=== PATIENT | male | born 1945 | race Caucasian/White ===

== ENCOUNTER 2016-12-08 20:52 | Observation (INO) | payer MEDICARE, OTHER ==
[~2016-12-08] VITALS: Ht 188 cm; Wt 99.0 kg
[2016-12-08 21:00] VITALS: BP 132/72; PULSE 72; RESP 18; TEMP 98.6; O2SAT 98
[2016-12-08] MEDS ORDERED: WARF4TAB52 PO (21:15)
[2016-12-08] MEDS ORDERED: TAMS0.4C4 PO (21:15)
[2016-12-08] MEDS ORDERED: LOSA100T PO (21:15)
[2016-12-08] MEDS ORDERED: WARF-60 PO (21:15)
[2016-12-08] MEDS ORDERED: SOTA80TA PO (21:15)
[2016-12-08] MEDS ORDERED: AMLO5TAB2 PO (21:15)
[2016-12-08] MEDS ORDERED: ASPI81CH CHEW (21:15)
[2016-12-08] MEDS ORDERED: LEVO.15 PO (21:15)
[2016-12-08] MEDS ORDERED: SODIUM CHLORIDE 0.9% FLUSH 5 ML FLUSH IVF PRN (21:30)
--- NOTE | 2016-12-08 21:37 | PD ---
HPI . Syncope Chief Complaint: Syncope/Near-Syncope Time Seen by Provider: 21:17 Travel History International Travel<30 days: No Contact w/Intl Traveler<30days: No Traveled to known affect area: No History of Present Illness HPI Patient presents following a syncopal event 3. History is obtained from the patient and his adult son. They were at the race. They report that they have ambulated lot today and had not eaten anything. The patient was standing when he passed out. He was caught by his son so there was no injury. The son states that the patient passed out again almost immediately after regaining consciousness. He then passed out a third time. The son reports that the patient was pale and diaphoretic with the third episode of syncope. Patient denies any prodrome. He denies any chest pain or shortness of breath. He denies headache. He reports a positive previous similar history in the remote past. He states that that episode was attributed to a new medication. PFSH Past Medical History Atrial Fibrillation: Yes Diminished Hearing: No GERD: Yes Hypertension: Yes Medical other: Yes (BPH, ) Thyroid Disease: Yes (hypothyroid) Tetanus Vaccination: < 5 Years Influenza Vaccination: No Past Surgical History Other Surgery: Yes (spenectomy, hernia repairs groin, colonscopy with repair after) Social History Alcohol Use: No Tobacco Use: No Substance Use: No Allergies-Medications (Allergen,Severity, Reaction): Coded Allergies: Altace (Verified Allergy, Unknown, 12/08/16) Sulfa (Verified Allergy, Unknown, Rash, 12/08/16) Reported Meds & Prescriptions Reported Meds & Active Scripts Active Reported Warfarin 1 Mg Tab 1 Mg PO DAILY Warfarin 6 Mg Tab 6 Mg PO DAILY Amlodipine (Amlodipine Besylate) 5 Mg Tab 5 Mg PO DAILY Tamsulosin (Tamsulosin HCl) 0.4 Mg Cap 0.4 Mg PO HS Synthroid (Levothyroxine Sodium) 150 Mcg Tab 150 Mcg PO DAILY Sotalol (Sotalol HCl) 80 Mg Tab 80 Mg PO DAILY Losartan (Losartan Potassium) 100 Mg Tab 100 Mg PO DAILY Aspirin 81 Mg Chew 81 Mg CHEW DAILY Review of Systems Except as stated in HPI: all other systems reviewed are Neg General / Constitutional: No: Fever, Chills Eyes: No: Blurred Vision HENT: No: Headaches Cardiovascular: Positive: Syncope, No: Chest Pain or Discomfort, Palpitations , Dyspnea on exertion Respiratory: No: Shortness of Breath Gastrointestinal: No: Nausea, Vomiting, Diarrhea, Abdominal Pain Musculoskeletal: Positive: Other (no injury) Neurologic: Positive: Change in Mentation, No: Dizziness, Headache, Slurred Speech, Paresthesia Physical Exam Narrative GENERAL: Patient is now awake and alert and fully oriented. SKIN: Warm and dry. HEAD: Atraumatic. Normocephalic. EYES: Pupils equal and round. Extraocular movements are intact. ENT: No nasal bleeding or discharge. Mucous membranes pink and moist. NECK: Trachea midline. Neck is supple and nontender. CARDIOVASCULAR: Regular rate and rhythm. Heart sounds are normal. RESPIRATORY: No accessory muscle use. Lungs are clear with full air movement throughout. GASTROINTESTINAL: Abdomen soft, non-tender, nondistended. There is no pulsatile abdominal mass. MUSCULOSKELETAL: No obvious deformities. No edema. NEUROLOGICAL: Awake and alert. No obvious cranial nerve deficits. Motor grossly within normal limits. Normal speech. PSYCHIATRIC: Appropriate mood and affect; insight and judgment normal. Data Data Last Documented VS Vital Signs Date Time Temp Pulse Resp B/P Pulse Ox O2 Delivery O2 Flow Rate FiO2 12/08/16 21:05 Room Air 12/08/16 21:00 98.6 72 18 132/72 98 Orders Electrocardiogram (12/08/16 21:18) Complete Blood Count With Diff (12/08/16 21:18) Comprehensive Metabolic Panel (12/08/16 21:18) Magnesium (Mg) (12/08/16 21:18) Ckmb (Isoenzyme) Profile (12/08/16 21:18) Troponin I (12/08/16 21:18) Act Partial Throm Time (Ptt) (12/08/16 21:18) Prothrombin Time / Inr (Pt) (12/08/16 21:18) Chest, Single Ap (12/08/16 21:18) Ecg Monitoring (12/08/16 21:18) Iv Access Insert/Monitor (12/08/16 21:18) Oximetry (12/08/16 21:18) Sodium Chloride 0.9% Flush (Ns Flush) (12/08/16 21:30) CKMB (12/08/16 21:30) CKMB% (12/08/16 21:30) Warfarin (Coumadin) (12/08/16 22:45) Admit Order (Ed Use Only) (12/08/16 22:53) Echo 2d Comp W/Dopp(Routine) (12/08/16 ) Place In Observation (12/08/16 ) Vital Signs (Adult) Q4H (12/08/16 22:52) Activity Oob With Assistance (12/08/16 22:52) 911 Operator / Telemetry .CONTINUOUS (12/08/16 22:52) Intake + Output CAS.QSHIFT (12/08/16 22:52) Diet Regular Basic (12/09/16 Breakfast) Sodium Chlor 0.9% 1000 Ml Inj (Ns 1000 M (12/08/16 22:52) Sodium Chloride 0.9% Flush (Ns Flush) (12/08/16 23:00) Sodium Chloride 0.9% Flush (Ns Flush) (12/09/16 09:00) Ondansetron Inj (Zofran Inj) (12/08/16 23:00) Bisacodyl Supp (Dulcolax Supp) (12/08/16 23:00) Comprehensive Metabolic Panel (12/09/16 09:00) Complete Blood Count With Diff (12/09/16 09:00) Troponin I (12/09/16 03:00) Troponin I (12/09/16 09:00) Scd Bilateral/Knee High CAS.BID (12/08/16 22:52) Emanuel Bilateral/Knee High CAS.QSHIFT (12/08/16 22:52) Acetaminophen (Tylenol) (12/08/16 23:00) Acetamin-Hydrocod 325-5 Mg ([place] 5-325 (12/08/16 23:00) Acetamin-Hydrocod 325-10 Mg ([place] 10-32 (12/08/16 23:00) Amlodipine (Norvasc) (12/09/16 09:00) Aspirin Chew (Aspirin Chew) (12/09/16 09:00) Levothyroxine (Synthroid) (12/09/16 09:00) Losartan (Cozaar) (12/09/16 09:00) Sotalol (Betapace) (12/09/16 09:00) Tamsulosin (Flomax) (12/09/16 21:00) Prothrombin Time / Inr (Pt) (12/09/16 06:00) Sotalol (Betapace) (12/08/16 23:00) Labs Laboratory Tests Test 12/08/16 21:30 White Blood Count 8.6 TH/MM3 Red Blood Count 4.48 MIL/MM3 Hemoglobin 14.1 GM/DL Hematocrit 41.5 % Mean Corpuscular Volume 92.6 FL Mean Corpuscular Hemoglobin 31.4 PG Mean Corpuscular Hemoglobin 34.0 % Concent Red Cell Distribution Width 13.3 % Platelet Count 188 TH/MM3 Mean Platelet Volume 9.3 FL Neutrophils (%) (Auto) 65.2 % Lymphocytes (%) (Auto) 20.5 % Monocytes (%) (Auto) 12.0 % Eosinophils (%) (Auto) 1.7 % Basophils (%) (Auto) 0.6 % Neutrophils # (Auto) 5.6 TH/MM3 Lymphocytes # (Auto) 1.8 TH/MM3 Monocytes # (Auto) 1.0 TH/MM3 Eosinophils # (Auto) 0.1 TH/MM3 Basophils # (Auto) 0.1 TH/MM3 CBC Comment DIFF FINAL Differential Comment Prothrombin Time 19.9 SEC Prothromb Time International 1.8 RATIO Ratio Activated Partial 32.9 SEC Thromboplast Time Sodium Level 137 MEQ/L Potassium Level 4.1 MEQ/L Chloride Level 104 MEQ/L Carbon Dioxide Level 26.8 MEQ/L Anion Gap 6 MEQ/L Blood Urea Nitrogen 20 MG/DL Creatinine 0.87 MG/DL Estimat Glomerular Filtration 86 ML/MIN Rate Random Glucose 105 MG/DL Calcium Level 8.3 MG/DL Magnesium Level 2.2 MG/DL Total Bilirubin 0.7 MG/DL Aspartate Amino Transf 21 U/L (AST/SGOT) Alanine Aminotransferase 26 U/L (ALT/SGPT) Alkaline Phosphatase 83 U/L Total Creatine Kinase 152 U/L Creatine Kinase MB 1.2 NG/ML Troponin I LESS THAN 0.02 NG/ML Total Protein 7.0 GM/DL Albumin 3.5 GM/DL MDM Medical Decision Making Medical Screen Exam Complete: Yes Emergency Medical Condition: Yes Medical Record Reviewed: Yes (the patient has never before.) Interpretation(s) EKG shows a sinus rhythm with a right bundle branch block. Differential Diagnosis My differential diagnosis of syncope includes but is not limited to cardiac arrhythmia, hypovolemia, anemia, neurological catastrophe, vasovagal response Narrative Course Patient presents for evaluation of syncope 3. CBC & BMP Diagram 12/08/16 21:30 Cardiac enzymes are negative. INR is 1.8. Diagnosis Primary Impression: Syncope Qualified Code: R55 - Syncope, unspecified syncope type Admitting Information Admitting Physician Requests: Observation Condition: Stable Jodi Pérez MD Dec 08, 2016 21:37
--- NOTE | 2016-12-08 21:49 | RADRPT ---
EXAM DATE/TIME: 12/08/2016 21:34 [facility] COMPARISON: No previous studies available for comparison. INDICATIONS : Syncope. MEDICAL HISTORY : Hypertension. Hypothyroidism. SURGICAL HISTORY : None. ENCOUNTER: Initial ACUITY: 1 day PAIN SCORE: 0/10 LOCATION: chest FINDINGS: A single view of the chest demonstrates the lungs to be symmetrically aerated without evidence of mas s, infiltrate The cardiomediastinal contours reveal atherosclerotic changes of the aorta.. Osseous structures are intact. Indistinct left costophrenic angle is appreciated with horizontal position of the left hemidiaphragm. This is of indeterminate chronicity. CONCLUSION: Left basilar changes horizontal diaphragm blunted left costophrenic angle indetermin ate chronicity. Atherosclerotic changes of the aorta. Saman Gaines MD on December 08, 2016 at 21:46 Board Certified Radiologist. This report was verified electronically.
[2016-12-08 21:58] LABS: AUTOMATED NEUTROPHIL # 5.6 TH/MM3 (1.8-7.7); BASOPHIL # 0.1 TH/MM3 (0-0.2); BASOPHIL % 0.6 % (0.0-2.0); EOSINOPHIL # 0.1 TH/MM3 (0-0.4); EOSINOPHIL % 1.7 % (0.0-4.0); HEMATOCRIT 41.5 % (39.0-51.0); HEMO FLAGS DIFF FINAL; LYMPH % 20.5 % (9.0-44.0); LYMPHOCYTE # 1.8 TH/MM3 (1.0-4.8); MEAN CELL VOLUME 92.6 FL (80.0-100.0); MEAN CORPUSCULAR HEMOGLOBIN 31.4 PG (27.0-34.0); NEUT % 65.2 % (16.0-70.0); PLATELET COUNT 188 TH/MM3 (150-450); RED BLOOD COUNT 4.48 MIL/MM3 (4.50-5.90); RED CELL DISTRIBUTION WIDTH 13.3 % (11.6-17.2); WHITE BLOOD COUNT 8.6 TH/MM3 (4.0-11.0)
[2016-12-08 22:00] VITALS: BP 129/99; PULSE 68; RESP 16; O2SAT 95
[2016-12-08 22:10] LABS: APTT (PATIENT) 32.9 SEC (24.3-30.1); INTERNATIONAL NORMALIZED RATIO 1.8 RATIO; PROTHROMBIN TIME - PATIENT 19.9 SEC (9.8-11.6)
[2016-12-08 22:15] LABS: ANION GAP 6 MEQ/L (5-15); AST (GOT) 21 U/L (15-37); BICARBONATE 26.8 MEQ/L (21.0-32.0); BLOOD UREA NITROGEN 20 MG/DL (7-18); CHLORIDE 104 MEQ/L (98-107); GLOMERULAR FILTRATION RATE 86 ML/MIN (>89); MAGNESIUM 2.2 MG/DL (1.5-2.5); POTASSIUM 4.1 MEQ/L (3.5-5.1); SODIUM (NA) 137 MEQ/L (136-145)
[2016-12-08 22:19] LABS: ALKALINE PHOSPHATASE 83 U/L (45-117); ALT (GPT) 26 U/L (12-78); CREATINE KINASE 152 U/L (39-308); TOTAL BILIRUBIN ADULT 0.7 MG/DL (0.2-1.0)
[2016-12-08 22:32] LABS: CKMB 1.2 NG/ML (0.5-3.6)
[2016-12-08] MEDS ORDERED: WARFARIN SOD 1 MG TAB PO ONE (22:45)
--- NOTE | 2016-12-08 22:53 | HHI.HP ---
[facility] Diagnosis Diagnoses: (1) Syncope Diagnosis: Principal (2) A-fib Diagnosis: Principal (3) HTN (hypertension) Diagnosis: Principal Travel History International Travel<30 Days: No Contact w/Intl Traveler <30 Da: No Traveled to Known Affected Are: No History of Present Illness This is a 71-year-old male with a PMH of HTN, Hypothyroidism, A. fib on Coumadin and BPH who was brought to the ER after a syncopal episode while at the races. Son states pt had acute syncopal episode while standing, no head trauma as Son caught him and lowered him to ground. Had 2 syncopal episodes immediately following. No incontinence, no seizure activity noted. Pt denies chest pain, SOB, lightheadedness or dizziness prior to syncopal events. On arrival, BP 132/72, HR 72, O2 sat 98% on RA, Afebrile. CBC unremarkable. Chemistry essentially unremarkable except for GFR 86. INR 1.8. Troponin negative. EKG with no acute changes. CXR with left basilar changes indeterminate chronicity, no acute findings. Review of Systems Except as stated in HPI: all other systems reviewed are Neg ROS: 14 point review of systems otherwise negative. Past Family Social History Past Medical History PMH: HTN, Hypothyroidism, A. fib on Coumadin and BPH Past Surgical History PAST SURGICAL HISTORY: Splenectomy, Hernia Repair Allergies: Coded Allergies: Altace (Verified Allergy, Unknown, 12/08/16) Sulfa (Verified Allergy, Unknown, Rash, 12/08/16) Family History PAST FAMILY HISTORY: Reviewed. No h/o DM or CAD Social History PAST SOCIAL HISTORY: Negative for alcohol, tobacco or drugs. Physical Exam Vital Signs Vital Signs Date Time Temp Pulse Resp B/P Pulse Ox O2 Delivery O2 Flow Rate FiO2 12/08/16 21:05 Room Air 12/08/16 21:00 98.6 72 18 132/72 98 Physical Exam PE: GENERAL: Pleasant elderly male in no acute distress. HEENT: PERRLA, EOMI. No scleral icterus or conjunctival pallor. No lid lag or facial droop. CARDIOVASCULAR: Regular rate and rhythm. No obvious murmurs to auscultation. No chest tenderness to palpation. RESPIRATORY: No obvious rhonchi or wheezing. Clear to auscultation. Breath sounds equal bilaterally. GASTROINTESTINAL: Abdomen soft, non-tender, nondistended. BS normal. MUSCULOSKELETAL: Extremities without clubbing, cyanosis, or edema. No obvious deformities. NEUROLOGICAL: Awake, alert and oriented x4. No focal neurologic deficits. Moving both upper and lower extremities spontaneously. Laboratory Laboratory Tests Test 12/08/16 21:30 White Blood Count 8.6 Red Blood Count 4.48 Hemoglobin 14.1 Hematocrit 41.5 Mean Corpuscular Volume 92.6 Mean Corpuscular Hemoglobin 31.4 Mean Corpuscular Hemoglobin 34.0 Concent Red Cell Distribution Width 13.3 Platelet Count 188 Mean Platelet Volume 9.3 Neutrophils (%) (Auto) 65.2 Lymphocytes (%) (Auto) 20.5 Monocytes (%) (Auto) 12.0 Eosinophils (%) (Auto) 1.7 Basophils (%) (Auto) 0.6 Neutrophils # (Auto) 5.6 Lymphocytes # (Auto) 1.8 Monocytes # (Auto) 1.0 Eosinophils # (Auto) 0.1 Basophils # (Auto) 0.1 CBC Comment DIFF FINAL Differential Comment Prothrombin Time 19.9 Prothromb Time International 1.8 Ratio Activated Partial 32.9 Thromboplast Time Sodium Level 137 Potassium Level 4.1 Chloride Level 104 Carbon Dioxide Level 26.8 Anion Gap 6 Blood Urea Nitrogen 20 Creatinine 0.87 Estimat Glomerular Filtration 86 Rate Random Glucose 105 Calcium Level 8.3 Magnesium Level 2.2 Total Bilirubin 0.7 Aspartate Amino Transf 21 (AST/SGOT) Alanine Aminotransferase 26 (ALT/SGPT) Alkaline Phosphatase 83 Total Creatine Kinase 152 Creatine Kinase MB 1.2 Troponin I LESS THAN 0.02 Total Protein 7.0 Albumin 3.5 Result Diagram: 12/08/16212912/08/162129 Assessment and Plan Problem List: (1) Syncope ICD Code: R55 Status: Acute (2) A-fib ICD Code: I48.91 Status: Acute (3) HTN (hypertension) ICD Code: I10 Status: Acute Assessment and Plan A/P: 1. Syncope: x3, Son reports decreased PO intake, no prodromal symptoms, no head trauma. CXR w/ no acute findings, images reviewed by me. Trop negative, EKG w/ no acute changes. Labs essentially unremarkable except for GFR 86, no previous labs for comparison. Admit for Observation, telemetry, check cardiac enzymes to eval for underlying ischemia, IVF for hydration, check Echo. 2. A-fib: Chronic. On Coumadin. INR 1.8. Resume home medications. Repeat INR in am. 3. HTN: Controlled. Resume home medications, monitor BP. 4. DVT Prophylaxis: On Coumadin 5. Social work for d/c planning as needed. 6. Case discussed w/ ER physician at length. Problem Qualifiers (1) Syncope: Qualified Code: R55 - Syncope, unspecified syncope type Марина Darby MD Dec 08, 2016 22:53
[2016-12-08] MEDS ORDERED: ACETAMINOPHEN/HYDROcodone 325 MG/10 MG TAB PO PRN (23:00)
[2016-12-08] MEDS ORDERED: SOTALOL HCL 80 MG TAB PO ONE (23:00)
[2016-12-08] MEDS: SODIUM CHLOR 0.9% 1000 ML INJ 1,000 ML IV SCH (23:00)
[2016-12-08] MEDS ORDERED: BISACODYL 10 MG SUPP PR PRN (23:00)
[2016-12-08] MEDS ORDERED: ACETAMINOPHEN 325 MG TAB PO PRN (23:00)
[2016-12-08] MEDS ORDERED: ONDANSETRON HCL 4 MG/2 ML VIAL IVP PRN (23:00)
[2016-12-08] MEDS ORDERED: ACETAMINOPHEN/HYDROcodone 325 MG/5 MG TAB PO PRN (23:00)
[2016-12-08] MEDS ORDERED: SODIUM CHLORIDE 0.9% FLUSH 5 ML FLUSH FLUSH PRN (23:00)
[2016-12-08 23:05] VITALS: BP 160/88; PULSE 79; RESP 18; O2SAT 95
[2016-12-09 00:30] VITALS: PULSE 62
[2016-12-09 00:54] VITALS: BP 136/85; PULSE 69; RESP 19; TEMP 98.2; O2SAT 97
[2016-12-09 04:33] LABS: INTERNATIONAL NORMALIZED RATIO 1.7 RATIO; PROTHROMBIN TIME - PATIENT 19.7 SEC (9.8-11.6)
[2016-12-09 04:52] VITALS: BP 132/80; PULSE 68; RESP 20; TEMP 98.3; O2SAT 97
[2016-12-09] MEDS ORDERED: LEVOTHYROXINE SODIUM 150 MCG TAB PO SCH (06:00)
[2016-12-09 07:29] VITALS: BP 127/73; PULSE 57; RESP 18; TEMP 97.7; O2SAT 94
[2016-12-09] MEDS ORDERED: SODIUM CHLORIDE 0.9% FLUSH 5 ML FLUSH FLUSH SCH (09:00)
[2016-12-09] MEDS ORDERED: ASPIRIN 81 MG CHEW TAB CHEW SCH (09:00)
[2016-12-09] MEDS ORDERED: LOSARTAN 50 MG TAB PO SCH (09:00)
[2016-12-09] MEDS ORDERED: SOTALOL HCL 80 MG TAB PO SCH (09:00)
[2016-12-09] MEDS ORDERED: amLODIPine BESYLATE 5 MG TAB PO SCH (09:00)
[2016-12-09] MEDS: SODIUM CHLOR 0.9% 1000 ML INJ 1,000 ML IV SCH (09:05)
--- NOTE | 2016-12-09 10:30 | HHI.PR ---
Subjective Remarks Follow-up for syncope. The patient is in town from [place], [place] for the races. He states he believes yesterday he "over did it" and wasn't drinking much water or eating regularly. He was walking around all day and the [place], and was standing for over an hour prior to passing out. He remembers turning to his son in saying that he can't stand anymore, and when he turned back around he states he must have passed out. His son caught him and lowered him to the ground. Today the patient feels completely back to normal and he wants to go home. He has ambulated around his room. Denies any lightheadedness, dizziness. He has a medical laboratory assistant in [place], Dr. Beto Acosta, [facility], . He believes he had an echocardiogram 2 years ago that was mostly normal, had 1 "leaky valve". Objective Vitals Vital Signs Date Time Temp Pulse Resp B/P Pulse Ox O2 Delivery O2 Flow Rate FiO2 12/09/16 07:29 97.7 57 18 127/73 94 12/09/16 04:52 98.3 68 20 132/80 97 12/09/16 00:54 98.2 69 19 136/85 97 12/09/16 00:30 62 12/08/16 23:05 79 18 160/88 95 Room Air 12/08/16 22:00 68 16 129/99 95 12/08/16 21:05 Room Air 12/08/16 21:00 98.6 72 18 132/72 98 I/O 12/08/16 12/08/16 12/08/16 12/09/16 12/09/16 12/09/16 07:00 15:00 23:00 07:00 15:00 23:00 Intake Total 662 ml Balance 662 ml Intake Oral 250 ml IV Total 412 ml # Voids 2 Result Diagram: 12/08/16212912/08/162129 Imaging Last Impressions Chest X-Ray 12/08/162117 Signed Impressions: Service Date/Time: November 21:34 - CONCLUSION: Left basilar changes horizontal diaphragm blunted left costophrenic angle indeterminate chronicity. Atherosclerotic changes of the aorta. Saman Gaines MD Objective Remarks GENERAL: Well-nourished, well-developed male patient in NAD. SKIN: Warm and dry. No rash. HEAD: Normocephalic. Atraumatic. EYES: Pupils equal and round. No scleral icterus. No injection or drainage. ENT: No nasal bleeding or discharge. Mucous membranes pink and moist. NECK: Supple. Trachea midline. CARDIOVASCULAR: Regular rate and rhythm. S1, S2 noted. No murmur appreciated. RESPIRATORY: No accessory muscle use. Clear to auscultation. Breath sounds equal bilaterally. GASTROINTESTINAL: Abdomen soft, non-tender, nondistended. Normoactive bowel sounds x4. MUSCULOSKELETAL: No obvious deformities. Extremities without clubbing, cyanosis , or edema. NEUROLOGICAL: Awake and alert. No obvious cranial nerve deficits. Motor grossly within normal limits. 5/5 muscle strength in bilateral upper and lower extremities. Normal speech. PSYCHIATRIC: Appropriate mood and affect; insight and judgment normal. Medications and IVs Current Medications Medications (Trade) Dose Ordered Sig/Kady Route Start Time Stop Time Status Last Admin (NS 1000 ml Inj) 1,000 ml @ 100 mls/hr Q10H IV 12/08/16 22:52 12/09/16 09:05 (NS Flush) 2 ml UNSCH PRN FLUSH 12/08/16 23:00 (NS Flush) 2 ml BID FLUSH 12/09/16 09:00 12/09/16 09:07 (Zofran Inj) 4 mg Q6H PRN IVP 12/08/16 23:00 (Dulcolax Supp) 10 mg DAILY PRN HI 12/08/16 23:00 (Tylenol) 650 mg Q6H PRN PO 12/08/16 23:00 ([place] 5-325 Mg) 1 tab Q4H PRN PO 12/08/16 23:00 ([place] 10-325 Mg) 1 tab Q4H PRN PO 12/08/16 23:00 (Norvasc) 5 mg DAILY PO 12/09/16 09:00 12/09/16 09:06 (Aspirin Chew) 81 mg DAILY CHEW 12/09/16 09:00 12/09/16 09:06 (Synthroid) 150 mcg DAILY@0600 PO 12/09/16 06:00 12/09/16 06:55 (Cozaar) 100 mg DAILY PO 12/09/16 09:00 12/09/16 09:07 (Betapace) 80 mg DAILY PO 12/09/16 09:00 12/09/16 09:06 (Flomax) 0.4 mg HS PO 12/09/16 21:00 A/P Problem List: (1) Syncope ICD Code: R55 Status: Acute (2) A-fib ICD Code: I48.91 Status: Acute (3) HTN (hypertension) ICD Code: I10 Status: Acute Assessment and Plan 71-year-old male with a PMH of HTN, Hypothyroidism, A. fib on Coumadin and BPH who was brought to the ER after a syncopal episode while at the [employer] Syncope: x3, Son reports decreased PO intake, no prodromal symptoms, no head trauma. CXR w/ no acute findings, images reviewed by me. Trop negative x2, EKG w/ RBBB but no acute ischemic changes. Labs essentially unremarkable except for GFR 86, no previous labs for comparison. Monitor on telemetry. Give IVF for hydration. Check Echo. Orthostatics negative. Try to obtain records from patient's medical laboratory assistant in [place], Dr. Beto Acosta, [facility], . -1400hrs: Records obtained from patient's medical laboratory assistant. Echo with EF 60-65%, aortic sclerosis without stenosis, no significant change from prior study 2009. EKG with RBBB. -1430hrs: Patient seen by Dr. Holt, patient currently having echo done, ok to discharge. A-fib: Chronic. Currently in NSR. On Coumadin. INR 1.8. Resume home medications. Monitor INR. HTN: Controlled. Resume home medications, monitor BP. DVT Prophylaxis: On Coumadin Discussed with Dr. Holt. Discharge Planning Discharge patient to home Condition on discharge: Improved Heart Healthy Diet as tolerated Ad Nadia activity Rx written: none Follow-up with primary care physician within 1 week Attending Statement The exam, history, and the medical decision-making described in the above note were completed with the assistance of the mid-level provider. I reviewed and agree with the findings presented. I attest that I had a [id number] encounter with the patient on the same day, and personally performed and documented my assessment and findings in the medical record. Problem Qualifiers (1) Syncope: Qualified Code: R55 - Syncope, unspecified syncope type Deja Reveles PA-C Dec 09, 2016 10:30 Abhilash Holt MD Dec 09, 2016 23:50
[2016-12-09 11:49] VITALS: BP_SYST 152; BP_SYST 156; BP_SYST 171; BP_DIAS 104; BP_DIAS 88; BP_DIAS 96; PULSE 54; RESP 20; TEMP 97.5; O2SAT 96
[2016-12-09 11:56] LABS: AUTOMATED NEUTROPHIL # 3.3 TH/MM3 (1.8-7.7); BASOPHIL % 0.6 % (0.0-2.0); EOSINOPHIL # 0.1 TH/MM3 (0-0.4); EOSINOPHIL % 0.8 % (0.0-4.0); HEMATOCRIT 41.8 % (39.0-51.0); HEMO FLAGS DIFF FINAL; LYMPH % 35.8 % (9.0-44.0); LYMPHOCYTE # 2.3 TH/MM3 (1.0-4.8); MEAN CELL VOLUME 93.4 FL (80.0-100.0); MEAN CORPUSCULAR HEMOGLOBIN 31.4 PG (27.0-34.0); MEAN CORPUSCULAR HGB CONC 33.6 % (32.0-36.0); MONO % 11.2 % (0.0-8.0); NEUT % 51.6 % (16.0-70.0); PLATELET COUNT 186 TH/MM3 (150-450); RED BLOOD COUNT 4.47 MIL/MM3 (4.50-5.90); RED CELL DISTRIBUTION WIDTH 13.5 % (11.6-17.2); WHITE BLOOD COUNT 6.5 TH/MM3 (4.0-11.0)
[2016-12-09 12:20] LABS: ALKALINE PHOSPHATASE 81 U/L (45-117); ALT (GPT) 24 U/L (12-78); ANION GAP 9 MEQ/L (5-15); AST (GOT) 18 U/L (15-37); BICARBONATE 27.1 MEQ/L (21.0-32.0); BLOOD UREA NITROGEN 14 MG/DL (7-18); CHLORIDE 106 MEQ/L (98-107); GLOMERULAR FILTRATION RATE 111 ML/MIN (>89); POTASSIUM 3.6 MEQ/L (3.5-5.1); SODIUM (NA) 142 MEQ/L (136-145); TOTAL BILIRUBIN ADULT 0.6 MG/DL (0.2-1.0)
--- NOTE | 2016-12-09 14:48 | HHI.DCPOC ---
Discharge Care Plan Diagnosis: (1) Syncope (2) A-fib (3) HTN (hypertension) Goals to Promote Your Health * To prevent worsening of your condition and complications * To maintain your health at the optimal level Directions to Meet Your Goals Take your medications as prescribed Follow your dietary instruction Follow activity as directed Keep your appointments as scheduled Take your immunizations and boosters as scheduled If your symptoms worsen call your PCP, if no PCP go to Urgent Care Center or Emergency Room Smoking is Dangerous to Your Health. Avoid second hand smoke Call the 24-hour hour crisis hotline for domestic abuse at Deja Reveles PA-C Dec 09, 2016 2:48 pm
--- NOTE | 2016-12-09 17:22 | EKG ---
Date Performed: 12/08/2016 Time Performed: 21:34:01 PTAGE: 71 years EKG: Sinus rhythm MARKED LEFT AXIS DEVIATION RIGHT BUNDLE BRANCH BLOCK ABNORMAL ECG NO PREVIOUS TRACING DOCTOR: Gayle Valdez Interpretating Date/Time 12/09/2016 17:16:47
--- NOTE | 2016-12-09 19:02 | EC ---
Study Study Date:12/09/2016 STUDY CONCLUSIONS SUMMARY - Left ventricle: The cavity size was normal. Wall thickness was normal. Systolic function was mildly reduced. The estimated ejection fraction was in the range of 45% to 50%. Wall motion was normal; there were no regional wall motion abnormalities. - Aortic valve: Mild regurgitation. - Left atrium: The atrium was mildly dilated. If LV function is below 40, please consider prescribing an ACEI or ARB or document rationale for non-use. PROCEDURE DATA STUDY STATUS: Elective. Procedure: Transthoracic echocardiography. Image quality was good. Scanning was performed from the parasternal, apical, and subcostal acoustic windows. Study completion: The patient tolerated the procedure well. Transthoracic echocardiography. M-mode, complete 2D, complete spectral Doppler, and color Doppler. Patient status: Inpatient. CARDIAC ANATOMY LEFT VENTRICLE: The cavity size was normal. Wall thickness was normal. Systolic function was mildly reduced. The estimated ejection fraction was in the range of 45% to 50%. Wall motion was normal; there were no regional wall motion abnormalities. AORTIC VALVE: Trileaflet; mildly thickened, mildly calcified leaflets. Doppler: Transvalvular velocity was within the normal range. There was no stenosis. Mild regurgitation. AORTA: Aortic root: The aortic root was normal in size. MITRAL VALVE: Structurally normal valve. Doppler: Transvalvular velocity was within the normal range. There was no evidence for stenosis. No regurgitation. LEFT ATRIUM: The atrium was mildly dilated. RIGHT VENTRICLE: The cavity size was normal. Wall thickness was normal. PULMONIC VALVE: Doppler: Transvalvular velocity was within the normal range. There was no evidence for stenosis. No regurgitation. TRICUSPID VALVE: Structurally normal valve. Doppler: Transvalvular velocity was within the normal range. No regurgitation. PULMONARY ARTERY: The main pulmonary artery was normal-sized. Systolic pressure was within the normal range. RIGHT ATRIUM: The atrium was normal in size. PERICARDIUM: There was no pericardial effusion. SYSTEMIC VEINS: Inferior vena cava: The vessel was normal in size. Prepared and signed by Migel Liang [id number]
[2016-12-09] MEDS ORDERED: TAMSULOSIN HCL 0.4 MG CAP PO SCH (21:00)
== END 2016-12-09 15:26 | disposition home or self-care (01) ==
LOC: NEPA 20:52 → NEDA 22:55 → NEPHCDU 12-09 00:33
PROVIDERS: ADMIT Internal Medicine; ATTEND Internal Medicine
DX: I70.0 Atherosclerosis of aorta (principal); R55 Syncope and collapse; I10 Essential (primary) hypertension; I48.2 Chronic atrial fibrillation; I45.10 Unspecified right bundle-branch block; N40.0 Benign prostatic hyperplasia without lower urinary tract symptoms; K21.9 Gastro-esophageal reflux disease without esophagitis; R61 Generalized hyperhidrosis; E03.9 Hypothyroidism, unspecified; Z79.01 Long term (current) use of anticoagulants
CPT/HCPCS: 71010; 80053; 82550; 82552; 83735; 84484; 85025; 85610; 85730; 93005; 93306; 99285; G0378; J7030